=== PATIENT | female | born 1965 | race Caucasian/White ===

== ENCOUNTER 2017-01-10 20:02 | Emergency (ER) | payer OTHER ==
[~2017-01-10] VITALS: Ht 160 cm; Wt 113.4 kg
[2017-01-10] MEDS ORDERED: ADDERALL 10 MG10 MG PO (20:18)
[2017-01-10] MEDS ORDERED: ADDERALL 5 MG TA5 MG PO (20:19)
[2017-01-10] MEDS ORDERED: UNITHROID75 MCG PO (20:20)
[2017-01-10] MEDS ORDERED: NORCO 5-325 TA1 EACH PO (21:17)
== END 2017-01-10 21:30 | disposition home or self-care (01) ==
LOC: ED 20:02
DX: S83.91XA Sprain of unspecified site of right knee, initial encounter (principal); F17.200 Nicotine dependence, unspecified, uncomplicated; Z90.89 Acquired absence of other organs; Z98.51 Tubal ligation status; Z88.0 Allergy status to penicillin; Z79.899 Other long term (current) drug therapy; W22.8XXA Striking against or struck by other objects, initial encounter; Y99.0 Civilian activity done for income or pay
CPT/HCPCS: 73560; 99283

== ENCOUNTER 2018-10-28 08:08 | Emergency (ER) | payer OTHER ==
[~2018-10-28] VITALS: Ht 160 cm; Wt 113.4 kg
[~2018-10-28 08:08] MED LIST: ADDERALL 10 MG10 MG PO; ADDERALL 5 MG TA5 MG PO; NORCO 5-325 TA1 EACH PO; UNITHROID75 MCG PO
--- OUTSIDE RECORDS SUMMARY | 2018-10-28 08:12 | XMS ---
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 Saida has no Care Guidelines for this patient. [place] VISIT COUNT (12 MO.) 1 MALKA Mauricio TOTAL 1 NOTE: Visits indicate total known visits. ED/C VISIT TRACKING (12 MO.) 10/28/2018 08:09 [facility] [place] TYPE: Emergency COMPLAINT: - LUMP IN RIGHT SHOULDER/ NO INJURY INPATIENT VISIT TRACKING (12 MO.) No inpatient visits to display in this time frame [email or web address]
[2018-10-28] MEDS ORDERED: METFORMIN HCL500 M1 PO (08:17)
[2018-10-29] MEDS ORDERED: CEPHALEXIN500 MG PO (00:49)
== END 2018-10-28 08:24 | disposition home or self-care (01) ==
LOC: ED 08:08
DX: M25.511 Pain in right shoulder (principal)